=== PATIENT | female | born 1975 | race Caucasian/White ===

== ENCOUNTER → 2021-09-15 | Outpatient (CLI) | payer BC ==
[~2021-09-15] MED LIST: CATHETER FLUSH 10 ML SYR IV PRN; HOLD METFORMIN - RECEIVED CONTRAST 20 ML VIAL IV SCH; IOHEXOL 350 MG/ML 100 ML (OMNIPAQUE 350) VIAL IV ONE; NS 100 ML (IVPB) BAG IV ONE
--- NOTE | 2021-09-15 12:11 | Diagnostic Imaging Report ---
PROCEDURE: CT neck soft tissue with contrast. TECHNIQUE: Multiple contiguous axial images were obtained through the neck after the administration of contrast. Auto Exposure Controls were utilized during the CT exam to meet ALARA standards for radiation dose reduction. INDICATION: Sore throat. Swollen right tonsil since July. COMPARISON: None. FINDINGS: No evidence of tonsillar abscess. No suspicious mass or enhancement within the pharynx or larynx. Normal floor of the mouth, tongue base and epiglottis. No retropharyngeal fluid. No cervical lymphadenopathy. The thyroid and major salivary glands are negative. Major vessels in the neck are grossly patent on this nondedicated exam. Paranasal sinuses and mastoids are clear. Visualized intracranial contents are unremarkable. Lung apices are clear. No acute findings in the cervical spine. IMPRESSION: No acute CT findings in the neck. No mass, fluid collections or lymphadenopathy. No evidence of tonsillar abscess or parapharyngeal inflammatory change. Dictated by: Dictated on workstation # [id number]
== END ==
LOC: RAD 08:56
PROVIDERS: ATTEND Otolaryngology Otolaryngology/Facial Plastic Surgery
DX: J02.9 Acute pharyngitis, unspecified (principal)
CPT/HCPCS: 70491